=== PATIENT | male | born 1985 | race Caucasian/White ===

== ENCOUNTER 2022-09-14 17:43 | Emergency (ER) | payer SELFPAY ==
[2022-09-14 17:48] VITALS: BP 127/79; PULSE 93; RESP 18; TEMP 37.2; O2SAT 99; BMI 21.5
--- NOTE | 2022-09-14 17:52 | CRLHL7_ITS ---
For Patients: As a result of the Cures Act, medical imaging exams and procedure reports are released immediately into your electronic medical record. You may view this report before your referring provider. If you have questions, please contact your health care provider. Indication: Injury. Technique: Right hand 3 views. Comparison: None. Findings: Bones: Bone alignment is normal. No acute fracture and no suspicious bone lesion. Old fracture deformity present in the ulnar styloid. Joint spaces: Unremarkable. Soft tissues: Unremarkable. Impression: No sign of acute injury. Dictated by Cornelius Mckinley MD @ 09/14/2022 7:06:42 PM (Electronically Signed)
[2022-09-14 20:16] VITALS: BP 115/74; PULSE 89; RESP 18; O2SAT 99
--- NOTE | 2022-09-14 20:24 | ED_ITS ---
HPI - Extremity Injury (Upper) General Chief Complaint: Extremity Pain/Injury, Upper Stated Complaint: Rt Hand Injury Time Seen by Provider: 09/14/22 20:04 History of Present Illness HPI narrative: This 37-year-old male comes in with an injury to his right hand. He was using an exercise band and stretching it intensely when it snapped and the end of it hit his right hand. He has pain at the MP joints of the index and middle fingers primarily. He does not report any other injury. Related Data Home Medications Medication Instructions Recorded Confirmed No Known Home Medications 09/14/22 09/14/22 Allergies Allergy/AdvReac Type Severity Reaction Status Date / Time No Known Drug Allergies Allergy Verified 09/14/22 17:50 Review of Systems Status of ROS: Reports: 10 or more systems reviewed and unremarkable except as noted in History and below Narrative: Constitutional: No fevers, no weight gain or loss. Eyes: No discharge. No vision changes. HENT: No congestion, no sore throat, no ear pain. Cardiovascular: No chest pain, no palpitations. Respiratory: No shortness of breath, no wheezes, no cough. Gastrointestinal: No abdominal pain, no vomiting, no diarrhea. Genitourinary: No dysuria, no hematuria. Musculoskeletal: Right hand injury as described above. Skin: No rashes, no pruritis. Neurological: No dizziness, weakness, sensory change, speech change. Endo/Heme/Allergies: No bruising or bleeding. No polydipsia. Pysch: no suicidality, no anxiety, no insomnia. All other systems reviewed and are negative. [facility] Medical History (Updated 09/14/22 @ 20:28 by Guerrero Benoit MD) No significant past medical history Surgical History (Updated 09/14/22 @ 20:08 by Oumar Narayan RN) No significant past surgical history Social History Smoking Status: Current every day smoker Do you use any of these nicotine containing products: None Second hand tobacco smoke exposure: Yes How often do you have a drink containing alcohol: never How often do you have six or more drinks on one occasion: Never AUDIT-C Alcohol total score: 0 Non-prescribed substance use: denies use Exam Narrative: Exam Narrative: Constitutional: Well-developed, well-nourished, no acute distress. HEENT: Normocephalic, atraumatic. Neck: Normal range of motion. Nontender. Supple. Heart: Intact distal pulses. Lungs: No chest discomfort. No wheezes, rhonchi, or rales. Abdomen: Nontender. Back: Normal range of motion. Extremities: Tenderness at the dorsal aspect of the MP joints of the right index and middle fingers. There is no obvious deformity or significant swelling. There is no break in the skin. Skin: Intact. No rash. Warm. No erythema or pallor. Neurologic: No altered sensation. No weakness. Alert and oriented. Psychiatric: No suicidality. No anxiety or depression. No insomnia. Nursing notes and vitals signs are reviewed. Const: Vital Signs, click to edit/add: Vital Signs - 24 hr 09/14/22 17:48 09/14/22 20:16 Temperature 98.9 F Pulse Rate [Right Pulse Oximeter] 93 89 Respiratory Rate 18 18 Blood Pressure [Ri ght Upper Arm] 127/79 115/74 Pulse Oximetry 99 99 Oxygen Delivery Me thod Room Air Room Air Course Vital Signs Vital signs: Initial Vital Signs Temperature 98.9 F 09/14/22 17:48 Temperature Source Temporal Artery Scan 09/14/22 17:48 Pulse Rate 93 09/14/22 17:48 Respiratory Rate 18 09/14/22 17:48 Blood Pressure 127/79 09/14/22 17:48 Blood Pressure Mean 95 09/14/22 17:48 Blood Pressure Position Sitting 09/14/22 17:48 Pulse Oximetry 99 09/14/22 17:48 Oxygen Delivery Method 09/14/22 17:48 Vital Signs Temperature 98.9 F 09/14/22 17:48 Pulse Rate 93 09/14/22 17:48 Respiratory Rate 18 09/14/22 17:48 Blood Pressure 127/79 09/14/22 17:48 Pulse Oximetry 99 09/14/22 17:48 Oxygen Delivery Method 09/14/22 17:48 Temperature 98.9 F 09/14/22 17:48 Pulse Rate 89 09/14/22 20:16 Respiratory Rate 18 09/14/22 20:16 Blood Pressure 115/74 09/14/22 20:16 Pulse Oximetry 99 09/14/22 20:16 Oxygen Delivery Method 09/14/22 20:16 MDM - Extremity Injury (Upper) MDM Narrative Medical decision making narrative: This patient comes in for evaluation of an injury to his right hand. X-ray images show no acute findings and no sign of fracture or dislocation. These results are communicated to the patient. His index and middle fingers were placed in a splint with an Naresh wrap essentially konrad taping them together for support and comfort. I advised using [id number] medicines as needed and directed for additional pain relief. Imaging Data XR R Hand: Radiologist's impression: No acute fracture. Discharge Plan Discharge Clinical Impression: Contusion of hand, right Patient Disposition: Home, Self-Care Condition: Stable Additional Instructions: Wear splint and konrad tape as needed. Use [id number] medicines as needed and directed. Increase activity as tolerated. Prescriptions: No Action No Known Home Medications Stand Alone Forms: [employer] Info Instructions
[2022-09-14 20:33] VITALS: BP 115/74; PULSE 89; RESP 18; TEMP 37.2
== END 2022-09-14 20:30 | disposition home or self-care (01) ==
PROVIDERS: Emergency Provider Emergency Medicine Emergency Medical Services
DX: S60.221A Contusion of right hand, initial encounter (principal); W20.8XXA Other cause of strike by thrown, projected or falling object, initial encounter; Y93.59 Activity, other involving other sports and athletics played individually; Y92.9 Unspecified place or not applicable; Y99.8 Other external cause status
CPT/HCPCS: 29130; 73130; 99283; 99284

== ENCOUNTER 2022-09-30 08:09 | Emergency (ER) | payer SELFPAY ==
[2022-09-30 08:31] VITALS: BP 109/94; PULSE 62; RESP 18; TEMP 36.4; O2SAT 98; BMI 22.3
--- NOTE | 2022-09-30 08:36 | ED.GENADULT ---
HPI - General Adult General Time Seen by Provider: 08:36 Date Seen: 09/30/22 Chief complaint: Dental/Oral/Mouth Injury/Pain Stated complaint: tooth infection worse Time Seen by Provider: 09/30/22 08:15 Source: patient and RN notes reviewed Mode of arrival: ambulatory Limitations: no limitations History of Present Illness HPI narrative: Nicolás is a 37-year-old male coming in with worsening dental pain. He went to a facility for dental issues on the . Was started on amoxicillin and given 8 tablets of oxycodone. He is very forthright with the information. I did confirm this on [place] prescribing website prior going into seeing him. He indeed did get 8 tablets of 5 mg of oxycodone on September 28. He states he took the last pill this morning. Originally when the dental pain started he was just alternating Tylenol and ibuprofen. The dental pain got bad enough that he went in on the . Originally the amoxicillin he felt was helping but last night the dental pain started to get worse. He has had no fevers. Feels there is a little more facial swelling. He states it is from rotted tooth in his mouth. He does have an upcoming dental appointment but his girlfriend helped him make it and he does not remember the specifics. He does state his dentition is in poor repair as he used to use drugs. We did have a blaire discussion of my concern of narcotic use starting back into drug use. He is quite adamant that there will be no return to drug use. Unfortunately, it is Thanksgiving and there really is no other avenues of care for him today. Related Data Home Medications Medication Instructions Recorded Confirmed No Known Home Medications 09/14/22 09/14/22 Allergies Allergy/AdvReac Type Severity Reaction Status Date / Time No Known Drug Allergies Allergy Verified 09/14/22 17:50 Review of Systems Narrative: As per HPI [facility] Medical History (Updated 09/30/22 @ 08:58 by Nimisha Gomez MD) No significant past medical history Surgical History (Updated 09/14/22 @ 20:08 by Oumar Narayan RN) No significant past surgical history Social History Smoking Status: Current every day smoker Do you use any of these nicotine containing products: None Second hand tobacco smoke exposure: Yes How often do you have a drink containing alcohol: never How often do you have six or more drinks on one occasion: Never AUDIT-C Alcohol total score: 0 Non-prescribed substance use: denies use Exam Const: Vital Signs, click to edit/add: Vital Signs - 24 hr 09/30/22 08:31 Temperature 97.5 F L Pulse Rate [Right Pulse Oximeter] 62 Respiratory Rate 18 Blood Pressure [Ri ght Upper Arm] 109/94 H Pulse Oximetry 98 Oxygen Delivery Me thod Room Air Documenting provider has reviewed patient's vital signs: yes Common normals: no apparent distress, average body habitus, oriented x3, no limitations, healthy appearing, alert and well nourished General appearance: cooperative, comfortable, well kempt and well developed HENMT: Other: There is some apparent swelling over the right lower cheek, altering the nasal labial fold some in comparison to the left side. There is no erythema. Tissues are little tender in feel little thicker but there is no fluctuance. Most of his teeth on the right upper jaw are eroded to the gumline. It is seemingly his canine on that right upper side that is quite tender but the surrounding gum line has no evidence of any fluctuance, no drainable abscess. There is erythematous change and swelling of the tissues, but no identifiable abscess is seen. Eye: Common normals: PERRL, EOMs intact bilaterally, conjunctivae normal and no scleral icterus Conjunctiva: conjunctiva(e) normal Pupil: PERRL Neuro: Common normals: oriented x3 Sensorium/orientation: alert Psych: Appearance: well kempt Course Course Hospital Course: Again, had discussion with patient about pain management. I am sympathetic as there really is no other avenue for him to go today. Likewise, there are no pharmacies open in town. He would like prescriptions from [facility]. My thought is to increase the antibiotic to Augmentin, will give him the smallest amount of oxycodone from [facility] that we have available. It is imperative that he get to a dentist. Did review with him if he is worsening, may want to consider going to an ED where they do have dentistry capabilities. The only facilities I know for sure that have this capacity are [facility], [place] and I believe the [facility]. I cannot guarantee that he would be able to see a dentist at these facilities but it might be a possibility. Vital Signs Vital signs: Initial Vital Signs Temperature 97.5 F L 09/30/22 08:31 Temperature Source Temporal Artery Scan 09/30/22 08:31 Pulse Rate 62 09/30/22 08:31 Respiratory Rate 18 09/30/22 08:31 Blood Pressure 109/94 H 09/30/22 08:31 Blood Pressure Mean 99 09/30/22 08:31 Blood Pressure Position Sitting 09/30/22 08:31 Pulse Oximetry 98 09/30/22 08:31 Oxygen Delivery Method 09/30/22 08:31 Vital Signs Temperature 97.5 F L 09/30/22 08:31 Pulse Rate 62 09/30/22 08:31 Respiratory Rate 18 09/30/22 08:31 Blood Pressure 109/94 H 09/30/22 08:31 Pulse Oximetry 98 09/30/22 08:31 Oxygen Delivery Method 09/30/22 08:31 Temperature 97.5 F L 09/30/22 08:31 Pulse Rate 62 09/30/22 08:31 Respiratory Rate 18 09/30/22 08:31 Blood Pressure 109/94 H 09/30/22 08:31 Pulse Oximetry 98 09/30/22 08:31 Oxygen Delivery Method 09/30/22 08:31 Critical Care Time Critical Care Time Critical Care Time: No Discharge Plan Discharge Clinical Impression: Pain, dental, Dental abscess Patient Disposition: Home, Self-Care Condition: Stable Instructions: Dental Abscess (ED) Additional Instructions: You need to see a dentist as soon as possible. Will switch you from amoxicillin to Augmentin and see if that helps with bacterial coverage. Continue with Tylenol 1000 mg 3 to 4 times a day, ibuprofen 600 mg 3 to 4 times a day alternating for pain management baseline. Can use oxycodone for more severe pain, follow-up prescription. May need to use a laxative such as senna or use of MiraLax to prevent narcotic associated constipation. If you are developing fevers have increasing facial swelling and pain, your going to need further evaluation emergently; there are emergent dental centers and certain ED do have possibility of dental capacity as we discussed. Activity Level: Activity as Tolerated Discharge Diet: Regular Prescriptions: No Action No Known Home Medications Follow Up/Referrals: Provider,Not a Local [Primary Care Provider] - Stand Alone Forms: [employer] Info Instructions
== END 2022-09-30 09:10 | disposition home or self-care (01) ==
PROVIDERS: Emergency Provider Family Medicine
DX: K04.7 Periapical abscess without sinus (principal)
CPT/HCPCS: 99283; 99284

== ENCOUNTER 2025-07-29 20:13 | Emergency (ER) | payer OTHER, SELFPAY ==
--- OUTSIDE RECORDS SUMMARY | 2025-07-29 20:15 | XMS_ITS | Clinical Summary ---
Author Organization [facility] Address [address] [place] [id number] Care Team Providers Care Respiratory Care Instructor Name Role Phone Pcp, No Primary Care Provider Unavailabl e Allergies No known active allergies Medications oxyCODONE (ROXICODONE) 5 mg immediate release tabletIndicatio ns:Pain, dental,Dental caries Take 1 Tablet (5 mg) by mouth every 4 hours if needed for Pain. Please take only if tylenol/ibuprof en is not adequately treating pain. 8 Tablet Active Social History Tobacco Use Types Packs/Day Years Used Date Smoking Tobacco: Never Assessed Sex and Gender Information Value Date Recorded Sex Assigned at Not on file Legal Sex Male 11:19 AM [employer]IFE [employer] Gender Identity Not on file Sexual Orientation Not on file Last Filed Vital Signs Vital Sign Reading Time Taken Comments Blood Pressure 120/82 09/28/2022 3:20 PM KNIFE C[employer]TER Pulse 64 09/28/2022 3:20 PM KNIFE C[employer]TER Temperature 36.9 C (98.4 F) 09/28/2022 3:20 PM KNIFE C[employer]TER Respiratory Rate 16 09/28/2022 3:20 PM KNIFE C[employer]TER Oxygen Saturation 100% 09/28/2022 3:20 PM KNIFE C[employer]TER Inhaled Oxygen Concentration - - Weight 56.7 kg (125 lb) 09/28/2022 3:20 PM KNIFE CUTTER Height 162.6 cm (5' 4) 09/28/2022 3:20 PM KNIFE C[employer]TER Body Mass Index 21.46 09/28/2022 3:20 PM KNIFE CUTTER Plan of Treatment Not on file Insurance MEDICAID Care Teams Respiratory Care Instructor Relationship Specialty Start Date End Date Pcp, No . PCP - General 09/28/22
[2025-07-29 20:17] VITALS: BP 113/75; PULSE 96; RESP 20; TEMP 37.2; O2SAT 97; BMI 20.1
--- NOTE | 2025-07-29 20:24 | ED_ITS ---
HPI - General Adult General Time Seen by Provider: 20:24 Date Seen: 07/29/25 Chief complaint: Cough Stated complaint: shortness of breath/ pain in back Time Seen by Provider: 07/29/25 20:14 Source: patient and RN notes reviewed Mode of arrival: ambulatory Limitations: no limitations History of Present Illness HPI narrative: This 40-year-old male is coming in with cough and congestion. Two days ago he started with sore throat, yesterday he started coughing. He has pain in his back with coughing and breathing, was more on the left side but it is now going the right side. Sometimes the muscle in his back will just spasm on both sides. He has been having to use his albuterol, current symptoms are making him short of breath. He has underlying asthma and chronic bronchitis per his report. His throat feels better now, he does not think he has had any fevers. Patient does smoke. Patient adamantly denies any injectable drug use at this time. Related Data Home Medications ?Medication ?Instructions ?Recorded ?Confirmed albuterol sulfate .ROUTE 07/29/25 Previous Rx's ?Medication ?Instructions ?Recorded azithromycin 250 mg tablet 250 mg PO DAILY 4 days #4 t abs 07/29/25 (Zithromax) cefdinir 300 mg capsule 300 mg PO BID #14 caps 07/29 prednisone 20 mg tablet 20 mg PO BID #10 tabs Allergies Allergy/AdvReac Type Severity Reaction Status Date / Time No Known Drug Allergies Allergy Verified 09/14/22 17:50 Review of Systems Status of ROS: Reports: 6 or more systems reviewed and unremarkable except as noted in History and below [facility] Medical History (Updated 07/29/25 @ 22:20 by Nimisha Gomez MD) No significant past medical history Surgical History No significant past surgical history Social History Smoking Status: Current every day smoker Do you use any of these nicotine containing products: None Second hand tobacco smoke exposure: Yes How often do you have a drink containing alcohol: never How often do you have six or more drinks on one occasion: Never AUDIT-C Alcohol total score: 0 Non-prescribed substance use: denies use service: No Exam Const: Vital Signs, click to edit/add: Vital Signs - 24 hr 07/29/25 20:17 07/29/25 20:38 07/29/25 20:54 Temperature 98.9 F 98.9 F Pulse Rate [Pulse Oximeter] 96 Respiratory Rate 20 Blood Pressure [Ri ght Upper Arm] 113/75 Pulse Oximetry 97 97 Oxygen Delivery Me thod Room Air 07/29/25 21:59 07/29/25 22:29 07/29/25 22:33 Temperature 98.9 F 98.3 F 98.3 F Pulse Rate [Pulse Oximeter] 85 85 Respiratory Rate 20 20 Blood Pressure [Ri ght Upper Arm] 121/78 121/78 Pulse Oximetry 97 Oxygen Delivery Me thod Room Air This 40-year-old male his alert, interactive, no apparent distress. He is sitting up on the bed in exam room 5. Sclera clear, extraocular muscles intact, pupils are equal round. Symmetrical facial function. Dentition he does have in his mouth looks to be good, missing most of his upper teeth. Posterior pharynx normal, no exudates or erythema noted. His speech is normal, able to speak in complete sentences. Neck is supple, no adenopathy. TMs canals are normal, no evidence of infection. He does have of course sound in cough but no stridor. Lung sounds are distant, some rhonchi occasionally, maybe end-expiratory whee zing at 1 point but it was not reproducible, does have prolonged expiratory phase. CV regular rate and rhythm, no murmur. He is of slender frame, skin visualized without any rash, skin is warm and dry. Documenting provider has reviewed patient's vital signs: yes Course Course ED Course: Will give patient a DuoNeb and give him some Toradol. He points to his pain along the base both chest borden posteriorly, think this is likely musculoskeletal. He could have some pleuritic irritation from underlying illness. This could be viral, could be activation of his chronic bronchitis or even community-acquired pneumonia. He has distant breath sounds, could be a component of asthma contributing as well. He is not hypoxic on arrival but will monitor him on pulse oximetry to watch. Will get a portable chest x-ray. Nursing staff already appropriately collected a triple viral swab. We will do some basic lab work. May need antibiotics and prednisone, await workup to fully decide on a care plan for him. Reevaluation(s) Time of Reevaluation #1: 22:00 Reevaluation #1: Patient was difficult for IV start as well as labs. His blood was hemolyzed, chemistries had to be redrawn. We reviewed that his white blood count is elevated. Chest x-ray is actually clear but I do suspect that he has really community-acquired pneumonia, could be atypical. He did feel better after the neb and Toradol. We will initiate Rocephin and start oral azithromycin. Will give oral dose of prednisone here. His asthma certainly seems like it could be triggered. His lungs have ongoing diminished breath sounds, no ronchi now, no wheezing. He feels better and lung sounds may be modestly improved. Vital Signs Vital signs: Initial Vital Signs Temperature 98.9 F 07/29/25 20:17 Temperature Source Temporal Artery Scan 07/29/25 20:17 Pulse Rate 96 07/29/25 20:17 Respiratory Rate 20 07/29/25 20:17 Blood Pressure 113/75 07/29/25 20:17 Blood Pressure Mean 87 07/29/25 20:17 Pulse Oximetry 97 07/29/25 20:17 Oxygen Delivery Method Room Air 07/29/25 20:17 Vital Signs Temperature 98.9 F 07/29/25 20:17 Pulse Rate 96 07/29/25 20:17 Respiratory Rate 20 07/29/25 20:17 Blood Pressure 113/75 07/29/25 20:17 Pulse Oximetry 97 07/29/25 20:17 Oxygen Delivery Method Room Air 07/29/25 20:17 Temperature 98.3 F 07/29/25 22:33 Pulse Rate 85 07/29/25 22:33 Respiratory Rate 20 07/29/25 22:33 Blood Pressure 121/78 07/29/25 22:33 Pulse Oximetry 97 07/29/25 22:29 Oxygen Delivery Method Room Air 07/29/25 22:29 Medications Administered Medications: Discontinued Medications Generic Name Dose Route Start Last Admin Trade Name Freq PRN Reason Stop Dose Admin Albuterol/Ipratropium 1 neb 07/29/25 20:50 07/29/25 20:55 Iprat-Albut 0.5-2.5 Mg/3 Ml Neb IH 07/29/25 20:51 1 neb ONCE ONE Administration Azithromycin 500 mg 07/29/25 22:01 07/29/25 22:05 Azithromycin 250 Mg Tablet PO 07/29/25 22:02 500 mg ONCE ONE Administration Ceftriaxone Sodium 2 gm/ 100 mls @ 200 mls/hr 07/29/25 22:01 07/29/25 22:30 Sodium Chloride IVPB 07/29/25 22:02 Infused ONCE ONE Infusion Ketorolac Tromethamine 15 mg 07/29/25 20:50 07/29/25 20:54 Ketorolac 15 Mg/Ml Inj IVP 07/29/25 20:51 15 mg ONCE ONE Administration Prednisone 40 mg 07/29/25 22:20 07/29/25 22:23 Prednisone 20 Mg Tablet PO 07/29/25 22:21 40 mg ONCE ONE Administration Medical Decision Making Lab Data Lab results reviewed: Yes I reviewed the patient's lab results Labs: Lab Results 07/29/25 07/29/25 Range/Units 20:00 20:22 WBC 17.10 H (4.50-11.00) K/uL RBC 4.78 (4.30-5.90) m/uL Hgb 15.3 (13.5-17.5) gm/dL Hct 45.5 (37.0-53.0) % MCV 95 (80-100) fL MCH 32 (26-34) pg MCHC 34 (32-36) gm/dL RDW Coeff of Kalpesh 13.5 (11.5-15.5) % Plt Count 291 (140-440) K/uL Neut % (Auto) 86.7 H (42.0-72.0) % Lymph % (Auto) 6.1 L (20-44) % [place] % (Auto) 6.4 (0.0-11.0) % Eos % (Auto) 0.4 (0.0-7.0) % Baso % (Auto) 0.2 (0.0-3.0) % Neut # (Auto) 14.80 H (1.7-7.0) K/uL Lymph # (Auto) 1.00 (0.90-2.90) K/uL [place] # (Auto) 1.10 H (0.00-0.90) K/UL Eos # (Auto) 0.10 (0.00-0.50) K/uL Baso # (Auto) 0.00 (0.00-0.30) K/uL Abs Immat Gran (auto) 0.00 (0.00-0.30) K/uL Imm/Tot Granulo (auto) 0.2 % Sodium 135 (135-149) mmol/L Potassium 4.3 (3.6-5.1) mmol/L Chloride 103 (96-114) mmol/L Carbon Dioxide 25 (20-32) mmol/L Anion Gap 7 (7-15) mEq/L BUN 17 (5-24) mg/dL Creatinine 0.9 (0.5-1.5) mg/dL Estimated Creat Clear 81.08 Estimated GFR 110 ml/min Glucose 95 (60-115) mg/dL Calcium 9.3 (8.4-10.6) mg/dL C-Reactive Protein 12.6 H (0.5-1.0) mg/dL SARS-CoV-2 (PCR) Negative SARS-CoV-2 (Negative) Influenza Type A (PCR) Negative PCR FLU A (Negative) Influenza Type B (PCR) Negative PCR FLU B (Negative) RSV (PCR) Negative PCR RSV (Negative) Imaging Data Chest x-ray: Attestation: I have reviewed the pertinent imaging results. My impression: Chest x-ray looks clear to me and my preliminary review. Radiologist's impression: Patient: JEREMIAH CANTON Facility:?[facility] Patient ID:?[id number] Site Patient ID:?[id number]. Site :?[id number] Study:?XRay-Chest 1V PORTABLE-07/29/2025 9:03:55 PM Ordering Physician:?Jason Bansal Final Report: INDICATION: Cough, shortness of breath, history asthma and chronic bronchitis TECHNIQUE: Chest radiograph 1 view on 2 images COMPARISON: None FINDINGS: Mediastinum: The mediastinum is normal in appearance. The heart silhouette is normal in size and morphology. Lung: Both lungs are unremarkable in appearance. No sign of pleural effusion seen. No pneumothorax is identified. Bone and Soft tissue: Unremarkable for age. A left metallic nipple piercing is noted. IMPRESSION: 1. No acute cardiopulmonary disease is seen. Dictated by Waldo Martinez MD @ 07/29/2025 9:14:29 PM Dictated by: Waldo Martinez MD @ 07/29/2025 21:14:33 (Electronic Signature) Discharge Plan Discharge Clinical Impression: Community acquired pneumonia, Asthma Patient Disposition: Home, Self-Care Condition: Improved Instructions: Asthma (ED), Pneumonia (ED) Additional Instructions: Start cefdinir tomorrow morning and take as prescribed. Next dose of azithromycin is due tomorrow evening, will take 4 more days of this. Continue to use your albuterol inhaler as needed for coughing, shortness of breath or wheezing. If you are not improving over the next week, feel you are worsening at any point, please seek re-evaluation. Prescriptions: New cefdinir 300 mg capsule 300 mg PO BID Qty: 14 0RF azithromycin [Zithromax] 250 mg tablet 250 mg PO DAILY 4 Days Qty: 4 0RF Rx Instructions: start on day 2 of therapy prednisone 20 mg tablet 20 mg PO BID Qty: 10 0RF No Action albuterol sulfate .ROUTE Follow Up/Referrals: Provider,Not a Local [Primary Care Provider, Family Practice] Stand Alone Forms: [employer] Info Instructions
[2025-07-29 20:38] VITALS: O2SAT 97
--- NOTE | 2025-07-29 20:39 | CRLHL7_ITS ---
For Patients: As a result of the Cures Act, medical imaging exams and procedure reports are released immediately into your electronic medical record. You may view this report before your referring provider. If you have questions, please contact your health care provider. INDICATION: Cough, shortness of breath, history asthma and chronic bronchitis TECHNIQUE: Chest radiograph 1 view on 2 images COMPARISON: None FINDINGS: Mediastinum: The mediastinum is normal in appearance. The heart silhouette is normal in size and morphology. Lung: Both lungs are unremarkable in appearance. No sign of pleural effusion seen. No pneumothorax is identified. Bone and Soft tissue: Unremarkable for age. A left metallic nipple piercing is noted. IMPRESSION: 1. No acute cardiopulmonary disease is seen. Dictated by Waldo Martinez MD @ 07/29/2025 9:14:29 PM Dictated by: Waldo Martinez MD @ 07/29/2025 21:14:33 (Electronically Signed)
[2025-07-29 20:54] VITALS: TEMP 37.2
[2025-07-29] MEDS: IPRAT-ALBUT 0.5-2.5 MG/3 ML NEB 1 NEB IH (20:55)
[2025-07-29 21:06] LABS: Hematocrit* 45.5 % (37.0-53.0); Hemoglobin* 15.3 gm/dL (13.5-17.5); Immature Granulocytes Pct Auto 0.2 %; Mean Corpuscular HGB Conc 34 gm/dL (32-36); Mean Corpuscular Hemoglobin 32 pg (26-34); Mean Corpuscular Volume 95 fL (80-100); RDW Coefficient of Variation % 13.5 % (11.5-15.5); Red Blood Count* 4.78 m/uL (4.30-5.90); White Blood Count* 17.10 K/uL (4.50-11.00)
[2025-07-29 21:11] LABS: PCR FLU A Negative PCR FLU A (Negative); PCR FLU B Negative PCR FLU B (Negative); PCR RSV Negative PCR RSV (Negative); SARS PCR* Negative SARS-CoV-2 (Negative)
[2025-07-29 21:15] LABS: Immature Granulocytes Abs Auto 0.00 K/uL (0.00-0.30); Lymphocytes Absolute Auto 1.00 K/uL (0.90-2.90); Slide Review Reflex No
[2025-07-29 21:59] VITALS: TEMP 37.2
[2025-07-29] MEDS: AZITHROMYCIN 250 MG TABLET 500 MG PO (22:05)
[2025-07-29] MEDS: cefTRIAXone 2 GM in 0.9 % SODIUM CHLORIDE Mini-bag 100 ML IVPB (22:06)
[2025-07-29 22:09] LABS: Potassium* 4.3 mmol/L (3.6-5.1); Sodium* 135 mmol/L (135-149)
[2025-07-29 22:10] LABS: Chloride* 103 mmol/L (96-114)
[2025-07-29 22:12] LABS: Anion Gap 7 mEq/L (7-15); Blood Urea Nitrogen* 17 mg/dL (5-24); Calcium* 9.3 mg/dL (8.4-10.6); Carbon Dioxide* 25 mmol/L (20-32); Creatinine* 0.9 mg/dL (0.5-1.5); Est. Creatinine Clearance* 81.08; Estimated Glomerular Filt Rate 110 ml/min; Glucose* 95 mg/dL (60-115)
[2025-07-29 22:29] VITALS: BP 121/78; PULSE 85; RESP 20; TEMP 36.8; O2SAT 97
[2025-07-29 22:33] VITALS: BP 121/78; PULSE 85; RESP 20; TEMP 36.8
== END 2025-07-29 22:34 | disposition home or self-care (01) ==
PROVIDERS: Emergency Provider Family Medicine
DX: J18.9 Pneumonia, unspecified organism (principal); J45.909 Unspecified asthma, uncomplicated; F17.200 Nicotine dependence, unspecified, uncomplicated
CPT/HCPCS: 36415; 71045; 80048; 85025; 86140; 87631; 94761; 96365; 96375; 99284; A9270; J0696; J1885; J7512